=== PATIENT | female | born 1940 | race Caucasian/White ===

== ENCOUNTER 2016-08-06 10:53 | Day surgery (SDC) | payer MEDICARE, OTHER ==
[~2016-08-06] VITALS: Ht 157.5 cm; Wt 78.1 kg
[2016-08-06] VITALS (9 sets, daily range): BP systolic 156–182; BP diastolic 68–92; PULSE 69–78; RESP 9–17; O2SAT 93–100
--- NOTE | 2016-08-06 06:42 | PCM.HPANE ---
Patient Data Surgeon Admitting Provider: Attending Provider:César Vinson MD Primary Care Physician:Jacque Michele DO Other Provider:Renetta Youingham Anesthesia Reason for Visit Left Distal Radius/Ulna Fracture Ht/WT & BMI Height (Feet): 5 Height (Inches): 2 Weight (Kilograms): 79.20 Body Mass Index 32.00 Allergies Coded Allergies: TAPE (Verified Allergy, Unknown, 08/06/16) latex (Verified Allergy, Unknown, 08/06/16) Past Anesthesia History Anesthesia History: Denies:: Abnormal Airway, Anesthesia Reactions, Difficult Intubation, Fam Anesthesia Reaction Diabetes History Hx Diabetes?: No MRSA MRSA: No Medications Hypertension Medication: Yes Home Meds Incl Beta Vaughn: No Reported Medications Multivitamin (Multivitamins)1 Each Capsule1 Each PO DAILY 08/06/16 [Cinsulin] No Conflict Check1 Tab PO DAILY 08/06/16 Losartan/HCTZ 100-25 mg 1 Each Tablet1 Tablet PO DAILY Ref 0 08/05/16 Hydrocodone-Acetaminophen 5-325 mg 1 Each Tablet1 Tablet PO Q4H PRN For Pain Ref 0 08/05/16 Ubidecarenone (Coq-10)100 Mg [id number] Mg PO DAILY 08/05/16 Thyroid,Pork ([place] Thyroid)60 Mg [id number] Mg PO DAILY 08/05/16 History HEENT History: Positive for:: Cataracts (bilateral surgery) Glaucoma (no gtts at this time) Hearing Problem (no aides) Sinus Problem (past hx sinus infection month ago) Denies:: Abnormal Airway Difficult Intubation Dysphagia Denture Type: Full- Upper Partial- Lower Hx of Heart Problems?: Yes Cardiovascular History: Positive for:: Hypertension Denies:: AICD Abdominal Aortic Aneurism Cardiac Surgery Chest Pain Congestive Heart Failure Coronary Artery Disease Edema Heart Murmur Irregular Heartbeat Pacemaker Peripheral Vascular Hx of Respiratory Problem?: No Respiratory History: Denies:: Asthma COPD Emphysema Oxygen Administration Pneumonia Tuberculosis Use of C-PAP Machine Use of Inhalers / NEBS Hx Neurologic Problems?: No Neurological History: Denies:: CVA Dizziness Headaches Multiple Sclerosis Parkinson's Disease Seizures TIA Hx of GI Problems?: Yes Gastrointestinal History: Positive for:: Gall Bladder Disease (removed ) Denies:: Cirrhosis Gastroesphageal Reflux Gastrointestinal Bleeding Heartburn Hepatitis Hiatal Hernia Hx of Problems?: No Genitourinary History: Denies:: Kidney Stones Urinary Tract Infection Female Hx: Positive for:: Problems with Breasts? (lumpectomy left, small cancer) Denies:: Currently (tubal ligation ) Skin History: Positive for:: History Skin Disorders? (lichen planus) Hx Musculoskeletal Problems?: Yes Musculoskeletal History: Positive for:: Musculoskeletal Trauma (left wrist current admission problem) Denies:: Back Injury Degenerative Joint Fibromyalgia Joint Replacement Myasthenia Gravis Osteoarthritis Rheumatoid Arthritis Systemic Lupus Hx of Psycho/Social Problems?: No Psycho Social History: Denies:: Anxiety Hx Depression Hx Surgeries?: Yes (lumpectomy, janette, ) Hx Any Other Health Problems?: Yes Other History: Positive for:: Cancer (breast cancer ) Thyroid Disease History Blood Transfusions: Positive for:: Accept Blood Products? Denies:: Blood Transfusions Hx Diabetes: No Hx Alcohol Use: YesAlcoholic Drinks Per Day: rarelyHx Substance Use: NoHave You Smoked inLast 12 mo: No Stop/Bang S-Snoring: Do You Snore Loudly: No T-Tired: feel tired, fatigued: Yes O-Obsered: Observed not breath: No P-Blood Pressure: treated: Yes B- Body Mass Index > 35 kg/m2: No A- Age over 50: Yes N- Neck Large Circumference: No G- Gender Male: No MATT Total Score: 3 MATT Risk Assessment: Low Risk, <3 Yes Risk Assessment Category Category 1A: Patient has history of documented sleep apnea, and HAS NOT received any narcotic, sedative or anesthesia administration during this stay. Category 1B: Patient has history of documented sleep apnea, and HAS received any narcotic , sedative or anesthesia administration during this stay Category 2: Patient has SUSPECTED Obstructive Sleep Apnea, and HAS received any narcotic , sedative or anesthesia administration during this stay. Category 3: Patient has SUSPECTED Obstructive Sleep Apnea and HAS NOT received narcotic, sedative or anesthesia administration during this stay. Category 4: Outpatient in Procedural Areas with known sleep apnea or who screen positive for High Risk via the STOP/BANG questionnaire. Exam Exam General Appearance: Alert, Oriented X3, Cooperative, No Acute Distress HEENT/AIRWAY: MP 2 Lungs: Clear to Auscultation, Normal Air Movement Heart: Exam Unremarkable, Regular Rate/Rhythm, No Murmurs/Rubs/Gallops Plan Impression Patient chart reviewed, patient interviewed and anesthestic plan with risks, benefits, and alternatives discussed, and informed consent obtained. ASA Physical Status: ASA2 Mod Systemic Disease Anesthetic Plan: GA Bene/Risks/Altern/Consents: Yes HP Complete Prior to Induction: Yes Sofia May MD Aug 06, 2016 06:42
[~2016-08-06 10:53] MED LIST: CeFAZolin 2 Gm/50 mL D5W IV Premix IV ONE; HYDR-4003 PO; LOSA1TAB70 PO; Lactated Ringer's 1,000 ML IV SCH; THYR60TA2 PO; UBID100C16 PO
[2016-08-06] MEDS ORDERED: HYDROmorphone 2 mg/mL Inj ONE (10:54)
[2016-08-06] MEDS ORDERED: fentaNYL-PF 50 mCg/mL 2 mL Inj ONE (10:54)
[2016-08-06] MEDS ORDERED: CeFAZolin 2 Gm/50 mL D5W Duplex Bag IV ONE (11:05)
[2016-08-06] MEDS ORDERED: Cinsulin PO (11:21)
[2016-08-06] MEDS ORDERED: MULT1CAP33 PO (11:21)
[2016-08-06] MEDS ORDERED: Lactated Ringer's 1,000 ML IV ONE (13:30)
[2016-08-06] MEDS ORDERED: Ropivacaine-PF 0.5% 30 mL Inj INFILTRATE ONE (14:11)
[2016-08-06] MEDS ORDERED: Lactated Ringer's 500 ML IV PRN (14:13)
[2016-08-06] MEDS ORDERED: Lactated Ringer's 1,000 ML IV SCH (14:13)
[2016-08-06] MEDS ORDERED: MetoCLOpramide 5 mg/mL 2 mL Inj IVPUSH PRN (14:15)
[2016-08-06] MEDS ORDERED: fentaNYL-PF 50 mCg/mL 2 mL Inj IVPUSH PRN (14:15)
[2016-08-06] MEDS ORDERED: EPHEDrine Sulfate 50 mg/mL Inj IVPUSH PRN (14:15)
[2016-08-06] MEDS ORDERED: Ondansetron 2 mg/mL 2 mL Inj IVPUSH PRN (14:15)
[2016-08-06] MEDS ORDERED: Dexamethasone 4 mg/mL Inj IVPUSH PRN (14:15)
[2016-08-06] MEDS ORDERED: hydrALAZINE 20 mg/mL Inj IVPUSH PRN (14:15)
[2016-08-06] MEDS ORDERED: Phenylephrine 10,000 mCg/mL Inj IVPUSH PRN (14:15)
[2016-08-06] MEDS ORDERED: Atropine 0.4 mg/mL Inj IVPUSH PRN (14:15)
[2016-08-06] MEDS ORDERED: Labetalol 5 mg/mL 4 mL Inj IV PRN (14:15)
[2016-08-06] MEDS ORDERED: HYDROmorphone 1 mg/mL Inj IVPUSH PRN (14:15)
[2016-08-06] MEDS ORDERED: Ketorolac 15 mg/mL Inj IVPUSH ONE (15:15)
[2016-08-06] MEDS ORDERED: HYDROcodone-APAP 5-325 mg Tablet PO PRN (15:15)
--- NOTE | 2016-08-06 15:17 | PCM.ORTHOP ---
Orthopedic Operative Report Date of Service: Aug 06, 2016 Pre Operative Diagnosis Left distal radius and ulna fracture Post Operative Diagnosis Same Procedure Left distal radius open reduction internal fixation, closed reduction with manipulation of the ulnar styloid fracture, greater than 3 fragments Surgeon Surgeon: César Vinson MD Assistants: Matt Turcios Indication for Procedure Left distal radius and ulna fracture Findings Comminuted left distal radius and ulna fracture with interarticular extension greater than 3 pieces Details of Procedure Indications: Naheed Christian is a 76-year-old female who sustained a left distal radius and ulna fracture after fall on outstretched hand. A clear explanation was given to the patient regarding the condition present, and the available conservative and surgical options. It was emphasized that the risks and benefits of surgery include but are not limited to infection, wound healing problems, damage to adjacent structures such as nerves, blood vessels and tendons, assistant terminal manager disability and pain, arthritis, hypersensitivity, deep vein thrombosis, pulmonary embolism, broken hardware, failure of surgery, need for further procedures at time of surgery or later, cast related problems, loss of limb or life. The patient was given an explanation and the patient voiced understanding of what to expect after the procedure or surgery, the limitations in activities of daily living, the likely duration for post operative recovery and the instructions that are to be followed. At the end the patient was invited to seek clarification or ask further questions but there were none. The patient voiced understanding of the entire consultation. Description of Procedure: Patient was taken to operating room and transferred to operating table in supine position. Time out was performed with both anesthesia and orthopaedics faculty present to confirm details of case to be performed. After time out performed, patient placed under general anesthesia and endotracheal tube secured into place. Once endotracheal tube secured, proximal arm tourniquet was placed over softroll and secured with tape. Patient position was again checked to ensure all bony prominences adequately padded. The left arm was prepped and draped in the usual sterile fashion to the level of the tourniquet. The left upper extremity was then exsanguinated with an esmark and the tourniquet was then inflated to 250 mmHG. Incision was made approximately 5 cm long over the course of the flexor carpi radialis (FCR) tendon. Hemostasis was controlled with electrocautery. The flexor carpi radialis tendon sheath was identified. The sheath was then entered with tenotomy scissors and released. The FCR tendon sheath was dissected distally to the level of the superficial radial artery. The FCR tendon was retracted towards the ulna to protect the median nerve. At this time the radial artery was identified and protected and retracted towards the radial side. Incision through the floor of the FCR sheath was performed. The pronator quadratus was identified and released by sharp dissection over the radial and distal edge by making a L incision. A periosteal elevator was used to elevate the pronator quadratus to expose the volar surface of the radius. The fracture site was identified and the distal fragment was released and freed up using a freer elevator. The extent of comminution was appreciated at this time. There was note comminution readily apparent with elevation of the distal fragment. The fracture site was debrided with a rongeur and curette. The fracture was reduced and secured with a K-wire. This was confirmed with fluoroscopy. Once the distal fragments were mobilized the fracture was then reduced by placing the Arthrex volar plate on the radial shaft and securing it distally with 2 K- wires through the plate. After verifying plate alignment and location of the wires close to subchondral bone, the distal row was fixed with screws. Then using a buttress effect the distal fragments were levered into a reduced position and secured with cortical shaft screws. Fluoroscopy confirmed acceptable reduction. Once the plate placement was appropriate the distal drill holes were drilled and filled with smooth peg locking screws. Proper plate alignment and screw placement was checked once more with fluoroscopy in both the AP and lateral views. Final plate position was confirmed with orthogonal views with fluoroscopy imaging that was saved in PACs. The DRUJ was noted to be stable while performing fluoroscopic exams after the ulnar styloid was close reduced with manipulation. Wound was then thoroughly irrigated with NS. The pronator quadratus was reapproximated with 2-0 Vycril suture. Subcutaneous closure completed with 4-0 Vycril suture and skin closure with 3-0 Nylon suture. Sterile dressing was placed on the incision as well as the hand and forearm which was then wrapped with soft roll. A sugar tong splint was applied to the left forearm and wrapped with [place] wraps. A shoulder sling was also placed for comfort. Patient was then awoken from anesthesia and extubated, his neurovascular status was intact when checked in PACU. Patient tolerated procedure well and there were no complications. I was present and scrubbed for the entire procedure. EMAIL DEVELOPER SURGEON: During the operation, the services of physician family readiness support assistant were medically indicated and necessary to provide exposure of the operative site for the surgical procedure and to maintain the limb in a proper position to carry out the operation safely and efficiently. Without the qualified health care assistant being present, it would have extended the operative procedure and made the procedure technically more difficult to perform. Grafts, Implants: Implants-See Implant Record Complications There were no periprocedural complications identified. Condition Stable Anesthetic Administered: GA Catheters: None Output, Estimated Blood Loss: 15 Blood Admin during surgery: No Surgical Cast or Splint: Short Arm Splint Surgical Specimen Removed: No Specimen sent to Pathology: No copies to: César Vinson MD, Christopher L MD Aug 06, 2016 15:17
--- NOTE | 2016-08-06 15:51 | DRSVH ---
PROCEDURE: X-RAY LEFT WRIST, TWO VIEWS ([id number]) INDICATIONS: LEFT WRIST ORIF TECHNIQUE: 2 views of the wrist were acquired. COMPARISON: None. FINDINGS: Bones: Expected postsurgical change from ORIF of distal radius fracture. Ulnar styloid process fractu re is noted. Soft tissues: No suspicious soft tissue calcifications. IMPRESSION: Expected postsurgical change for ORIF of distal radius fracture. Dictated by: Lupe Rojas MD, PhD on 08/06/2016 at 15:49 Approved by: Lupe Rojas MD, PhD on 08/06/2016 at 15:49
--- NOTE | 2016-08-06 15:58 | PCM.ANEP1 ---
Post Anesthesia Phase 1 PACU Phase 1 Assessment Date of Service: Aug 06, 2016 Vital Signs Vital Signs Date Time Temp Pulse Resp B/P Pulse Ox O2 Delivery O2 Flow Rate FiO2 08/06/16 15:54 70 16 172/82 94 Room Air 08/06/16 15:51 36 72 16 181/79 93 Room Air 08/06/16 15:40 72 11 166/76 96 Room Air 08/06/16 15:35 36.0 78 12 174/90 97 Room Air 08/06/16 15:30 69 11 174/78 100 Simple Mask 8 08/06/16 15:25 71 9 177/82 100 Simple Mask 8 08/06/16 15:20 75 11 172/77 100 Simple Mask 8 08/06/16 15:16 36.1 76 17 161/81 99 Simple Mask 8 08/06/16 11:16 37.0 73 16 156/68 98 Room Air Anesthetic Administered: GA Level of Alertness: Awake, talking CASTLE's with Equal Strength: Yes Pain: No Nausea or Vomiting: No Oxygen Delivery: Simple Mask Lungs: Clear to Auscultation, Normal Air Movement Sofia May MD Aug 06, 2016 15:58
--- NOTE | 2016-08-06 15:58 | PCM.ANEP2 ---
Post Anesthesia Evaluation ASA/CMS Post Anesthesia VS in Patient's Normal Range?: Yes Resp Stable; Airway Patent?: Yes CV Function & Hydration Stable: Yes Mental Status Recovered?: Yes Pain control Satisfactory?: Yes N/V Control Satisfactory?: Yes Sofia May MD Aug 06, 2016 15:58
== END 2016-08-06 23:59 | disposition home or self-care (01) ==
LOC: SAS 10:53
PROVIDERS: ATTEND Orthopaedic Surgery
DX: S52.572A Other intraarticular fracture of lower end of left radius, initial encounter for closed fracture (principal); S52.612A Displaced fracture of left ulna styloid process, initial encounter for closed fracture; I10 Essential (primary) hypertension
CPT/HCPCS: 25609; 25650; 73100; 76000; C1713; J0690; J1170; J2250; J2795; J7120